=== PATIENT | male | born 1970 | race American Indian/Alaskan Native ===

== ENCOUNTER 2017-12-04 15:11 | Emergency (ER) | payer OTHER ==
[2017-12-04 15:34] VITALS: BP 164/110
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
--- NOTE | 2017-12-04 18:39 | XRay Report ---
FINAL REPORT EXAM: XR KNEE 3V RT HISTORY: trauma knee pain TECHNIQUE: AP, bilateral oblique, and lateral views of the right knee PRIORS: None. FINDINGS: No acute fracture or dislocation is seen. The soft tissues demonstrate moderate suprapatellar joint effusion. Joint spaces are maintained and bony mineralization is normal. Large spurs off the anterior aspect of the patella is seen superiorly and inferiorly. IMPRESSION: No acute bony abnormality of the right knee. Moderate suprapatellar joint effusion.
--- NOTE | 2017-12-04 18:40 | XRay Report ---
FINAL REPORT EXAM: XR SHOULDER 2+V LT HISTORY: trauma shoulder pain TECHNIQUE: AP, Y, and oblique views of the left shoulder PRIORS: None. FINDINGS: There is no evidence of acute fracture or dislocation. Joint spaces are maintained and bony mineralization is normal. Soft tissues are unremarkable. Spurring off the inferior AC joint is noted. IMPRESSION: No acute abnormality identified in the left shoulder.
== END 2017-12-04 19:24 | disposition home or self-care (01) ==
LOC: ED 15:11
DX: S40.012A Contusion of left shoulder, initial encounter (principal); S80.01XA Contusion of right knee, initial encounter; I10 Essential (primary) hypertension; E11.9 Type 2 diabetes mellitus without complications; V43.52XA Car driver injured in collision with other type car in traffic accident, initial encounter; Y93.89 Activity, other specified; Y92.89 Other specified places as the place of occurrence of the external cause; Y99.8 Other external cause status
CPT/HCPCS: 99284